=== PATIENT | female | born 1995 | race American Indian/Alaskan Native ===

== ENCOUNTER 2024-01-24 11:44 | Emergency (ER) | payer MEDICAID, OTHER ==
[2024-01-24 12:25] LABS: BASOPHILS PERCENT AUTO 0.2 % (0.0-1.0); EOSINOPHILS PERCENT AUTO 0.1 % (1.0-3.0); HEMATOCRIT 40.1 % (37.0-47.0); HEMOGLOBIN 13.2 g/dL (12.0-16.0); LYMPHOCYTES PERCENT AUTO 11.9 % (20.5-50.1); MEAN CORPUSCULAR HEMOGLOBIN 28.2 pg (27.0-34.0); MEAN CORPUSCULAR HGB CONC 32.9 g/dL (33.0-35.0); MEAN CORPUSCULAR VOLUME 85.7 fL (80-100); MONOCYTES PERCENT AUTO 2.9 % (2-8); NEUTROPHILS PERCENT AUTO 84.9 % (42.2-75.2); PLATELET COUNT,PLT 255 10^3/uL (150-450); RED BLOOD CELL COUNT 4.68 10^6/uL (4.2-5.4); WHITE BLOOD CELL COUNT,WBC 9.4 10^3/uL (5.0-10.0)
[2024-01-24 12:51] LABS: ACETAMINOPHEN 0 ug/mL (10-30 (Therapeutic)); ALANINE AMINOTRANSFERASE,ALT 42 U/L (14-59); ALBUMIN 4.2 g/dL (3.4-5.0); ALKALINE PHOSPHATASE 130 U/L (46-116); ANION GAP 15.3 mEq/L (7-13); ASPARTATE AMNIOTRANSFERASE,AST 13 U/L (15-37); BILIRUBIN TOTAL 0.8 mg/dL (0.2-1.0); BLOOD UREA NITROGEN,BUN 9 mg/dL (7-18); BUN/CREATININE RATIO 12.2 (No establ ref range); CARBON DIOXIDE,CO2 26 mmol/L (21-32); CHLORIDE,CL 106 mmol/L (98-107); CREATININE 0.74 mg/dL (0.55-1.02); ESTIMATED GFR 113 mL/min (>=60); ETHANOL BLOOD MEDICAL < 3 mg/dL (0); GLUCOSE RANDOM 138 mg/dL (70-99); MAGNESIUM 1.9 mg/dL (1.8-2.4); POTASSIUM,K 4.3 mmol/L (3.5-5.1); PROTEIN TOTAL,TP 8.3 g/dL (6.4-8.2); SODIUM,NA 143 mmol/L (136-145); TSH ULTRASENSITIVE 0.13 uIU/mL (0.36-3.74)
[2024-01-24 13:07] LABS: APPEARANCE,URINE CLEAR (CLEAR); BILIRUBIN,URINE NEGATIVE (NEGATIVE); COLOR,URINE YELLOW (YELLOW); GLUCOSE,URINE NEGATIVE (NEGATIVE); KETONES,URINE NEGATIVE (NEGATIVE); LEUKOCYTE ESTERASE,URINE TRACE (NEGATIVE); NITRITE,URINE NEGATIVE (NEGATIVE); OCCULT BLOOD,URINE NEGATIVE (NEGATIVE); PROTEIN,URINE NEGATIVE (NEGATIVE); UROBILINOGEN,URINE 0.2 mg/dL (0.2-1.0)
[2024-01-24 13:09] LABS: METHAMPHETAMINES,URINE NEGATIVE (NEGATIVE)
[2024-01-24 13:10] LABS: AMPHETAMINES,URINE NEGATIVE (NEGATIVE); BARBITURATES,URINE NEGATIVE (NEGATIVE); BENZODIAZEPINE,URINE NEGATIVE (NEGATIVE); MDMA (ECSTASY), URINE NEGATIVE (NEGATIVE); METHADONE,URINE POSITIVE (NEGATIVE); OPIATES,URINE NEGATIVE (NEGATIVE); OXYCODONE,URINE NEGATIVE (NEGATIVE); PHENCYCLIDINE,URINE NEGATIVE (NEGATIVE); TCA,URINE NEGATIVE (NEGATIVE)
[2024-01-24] MEDS: LORazepam 2 MG/ML SDV IM ONE (13:15)
[2024-01-24 13:19] LABS: BACTERIA,URINE MODERATE /HPF (0-FEW/HPF); EPITHELIAL CELLS,URINE RARE /HPF (NOT SEEN); MUCUS,URINE NOT SEEN /LPF (NOT SEEN); RBC,URINE NOT SEEN /HPF (0-5); WBC,URINE 0-5 /HPF (0-5/HPF)
== END 2024-01-24 13:49 | disposition left against medical advice (07) ==
LOC: DL.ED 11:44
DX: F29 Unspecified psychosis not due to a substance or known physiological condition (principal); F19.20 Other psychoactive substance dependence, uncomplicated; F17.210 Nicotine dependence, cigarettes, uncomplicated; Z88.1 Allergy status to other antibiotic agents; Z88.8 Allergy status to other drugs, medicaments and biological substances
CPT/HCPCS: 36415; 80053; 80143; 80179; 80305; 80307; 81001; 81025; 82140; 83735; 84443; 85025; 87086; 96372; 99283; 99284; J2060; 87088; 87186